=== PATIENT | female | born 1940 | race Caucasian/White ===

== ENCOUNTER → 2024-06-09 | Outpatient (REF) | payer MEDICARE, SELFPAY ==
[2024-06-09 08:55] LABS: Hematocrit 24.7 % (37-47); Hemoglobin 7.9 g/dL (12.0-15.0); Mean Corpuscular Hgb 26.6 pg (27.0-32.0); Mean Corpuscular Volume 83.2 fL (81-99); Mean Platelet Vol. 10.7 fl (6.2-12.0); POSITIVE COUNT YES; Platelet Count 85 K/mm3 (150-450); RBC Distribution Width CV 19.5 % (11.6-14.6); RBC Distribution Width SD 59.7 fl (35.1-43.9); Red Blood Count 2.97 M/mm3 (4.2-5.4); White Blood Count 2.9 K/mm3 (4.4-11.0)
[2024-06-09 09:02] LABS: Anion Gap 7 (5-15); BUN 18 mg/dL (7-18); BUN/Creat Ratio 24.2 RATIO (10-20); Calcium,Total 8.4 mg/dL (8.5-10.1); Chloride 108 mmol/L (98-107); Creatinine, Serum 0.74 mg/dL (0.55-1.02); EST Glomerular Filtration Rate 79 mL/min (>60); Est Glom Filt Rate - Afr Amer 96 mL/min (>60); Glucose 73 mg/dL (74-106); Potassium 3.8 mmol/L (3.5-5.1); Scan Indicated on CBC? Y/N YES- FLAGS NOTED; Sodium Level 139 mmol/L (136-145)
== END ==
LOC: OLS.SANC 05:00
PROVIDERS: Visit Provider Internal Medicine
DX: D64.9 Anemia, unspecified (principal); N39.0 Urinary tract infection, site not specified; E78.5 Hyperlipidemia, unspecified
CPT/HCPCS: 36415; 80048; 85027

== ENCOUNTER → 2024-07-04 | Outpatient (REF) | payer MEDICARE, SELFPAY ==
[2024-07-05 08:31] LABS: Mucous, Urine 0 SEEN /hpf (<or=2+); Squamous Epithelial Cells - UA 0 SEEN /hpf (5-10)
[2024-07-05 08:53] LABS: Color, Urine Yellow (Yellow); Glucose, Dipstick Normal (Normal); Ketone-Dipstick Negative (Negative); Leukocyte Esterase-Dipstick 500 /ul (Negative); Nitrite-Dipstick Negative (Negative); Occult Blood-Urine 10 /ul (Negative); Protein-Dipstick 15 mg/dl (Negative); Specific Gravity, Urine 1.015 (1.002-1.030); Urine Bilirubin Dipstick Negative (Negative); Urine Clarity Sl. Cloudy (Clear); Urine Urobilinogen Normal (Normal)
[2024-07-05 09:01] LABS: Bacteria 2+ /hpf (None Seen)
[2024-07-05 09:03] LABS: Red Blood Cells-Urine 0 SEEN /hpf (0-5); White Blood Cells 10-25 SEEN /hpf (0-5)
== END ==
LOC: OLS.SANC 03:20
DX: N39.0 Urinary tract infection, site not specified (principal)
CPT/HCPCS: 81001; 87077; 87086; 87088; 87186

== ENCOUNTER → 2024-07-11 | Outpatient (REF) | payer MEDICARE, SELFPAY | LOC: OLS.SANC 11:30 | PROVIDERS: Visit Provider Internal Medicine | DX: R19.5 Other fecal abnormalities (principal) | CPT/HCPCS: 87493 ==

== ENCOUNTER → 2024-07-20 | Outpatient (REF) | payer MEDICARE, SELFPAY ==
[2024-07-20 09:16] LABS: Hematocrit 28.9 % (37-47); Hemoglobin 10.1 g/dL (12.0-15.0); Mean Corp Hgb Conc 34.9 g/dL (32-36); Mean Corpuscular Hgb 26.6 pg (27.0-32.0); Mean Corpuscular Volume 76.3 fL (81-99); Mean Platelet Vol. 10.5 fl (6.2-12.0); Platelet Count 234 K/mm3 (150-450); RBC Distribution Width CV 18.8 % (11.6-14.6); RBC Distribution Width SD 50.9 fl (35.1-43.9); Red Blood Count 3.79 M/mm3 (4.2-5.4); White Blood Count 9.6 K/mm3 (4.4-11.0)
[2024-07-20 09:53] LABS: Anion Gap 15 (5-15); BUN 55 mg/dL (4-19); BUN/Creat Ratio 22.4 RATIO (10-20); Calcium,Total 7.4 mg/dL (7.6-11.0); Chloride 83 mmol/L (98-108); Creatinine, Serum 2.46 mg/dL (0.70-1.20); EST Glomerular Filtration Rate 19 (>60); Glucose 95 mg/dL (70-99); Potassium 2.4 mmol/L (3.3-5.1); Sodium Level 123 mmol/L (133-145)
== END ==
LOC: OLS.SANC 04:00
DX: D64.9 Anemia, unspecified (principal); I50.9 Heart failure, unspecified
CPT/HCPCS: 36415; 80048; 85027